=== PATIENT | female | born 1980 | race African-American/Black ===

== ENCOUNTER 2018-07-14 17:13 | Emergency (ER) | payer BC, OTHER ==
[2018-07-14] MEDS: DIPHENHYDRAMINE 50 MG INJ IV (18:11)
[2018-07-14] MEDS: SOD CHLORIDE 0.9% 1,000 ML IV (18:11)
[2018-07-14] MEDS: ONDANSETRON 4 MG INJ IV (18:11)
[2018-07-14 18:21] LABS: ADD MAN DIFF? NO
[2018-07-14 18:33] LABS: WHITE BLOOD COUNT 7.5 10^3/ul (4.8-10.8)
[2018-07-14 18:33] LABS: BASOPHILS % 0.4 % (0.0-2.0); EOSINOPHILS # 0.1 10^3/ul (0.0-0.5); EOSINOPHILS % 0.9 % (0.0-7.0); HEMATOCRIT 37.1 % (37.0-47.0); HEMOGLOBIN 12.7 g/dl (12.0-16.0); LYMPHOCYTES # 3.6 10^3/ul (0.8-2.9); LYMPHOCYTES % 48.3 % (15.0-51.0); MEAN CORPUSCULAR HEMOGLOBIN 32.6 pg (29.0-33.0); MEAN CORPUSCULAR HGB CONC 34.2 g/dl (32.0-37.0); MEAN CORPUSCULAR VOLUME 95.1 fl (82.0-101.0); MEAN PLATELET VOLUME 9.6 fl (7.4-10.4); MONOCYTE # 0.4 10^3/ul (0.3-0.9); MONOCYTES % 5.1 % (0.0-11.0); NEUTROPHIL # 3.4 10^3/ul (1.6-7.5); NEUTROPHILS % 45.2 % (39.0-77.0); PLATELET COUNT 202 10^3/UL (140-415); RED CELL DISTRIBUTION WIDTH 14.5 % (11.5-14.5)
[2018-07-14 18:39] LABS: ADD UMIC NO; UR ASCORBIC ACID 20 mg/dL (NEGATIVE); UR BILIRUBIN (Dip) NEGATIVE (NEGATIVE); UR BLOOD (Dip) NEGATIVE (NEGATIVE); UR CLARITY CLEAR (CLEAR); UR COLOR YELLOW (YELLOW); UR GLUCOSE (Dip) NEGATIVE (NEGATIVE); UR KETONES (Dip) TRACE mg/dL (NEGATIVE); UR LEUKOCYTE ESTERASE (Dip) NEGATIVE Leu/ul (NEGATIVE); UR NITRITE (Dip) NEGATIVE (NEGATIVE); UR SPECIFIC GRAVITY (Dip) 1.026 (1.003-1.030); UR TOTAL PROTEIN (Dip) NEGATIVE (NEGATIVE); UR UROBILINOGEN (Dip) 2+ mg/dL (NEGATIVE)
[2018-07-14 18:59] LABS: ALANINE AMINOTRANSFERASE 22 IU/L (13-69); ALBUMIN 3.3 g/dl (3.3-4.9); ALBUMIN/GLOBULIN RATIO 1.22; ALKALINE PHOSPHATASE 46 IU/L (42-121); ANION GAP 9 (8-16); ASPARTATE AMINO TRANSFERASE 28 IU/L (15-46); BILIRUBIN,INDIRECT 0.3 mg/dl (0-1.1); BILIRUBIN,TOTAL 0.3 mg/dl (0.2-1.3); BLOOD UREA NITROGEN 13 mg/dl (7-20); CALCIUM 8.9 mg/dl (8.4-10.2); CARBON DIOXIDE 28 mmol/L (21-31); CHLORIDE 104 mmol/L (97-110); CREATININE 0.58 mg/dl (0.44-1.00); GLUCOSE 112 mg/dl (70-220); LIPASE 216 U/L (23-300); SODIUM 138 mmol/L (135-144)
[2018-07-14 19:06] LABS: TROPONIN-I < 0.012 ng/ml (0.000-0.120)
[2018-07-14] MEDS: POTASSIUM CHLORIDE (SR) 20 MEQ TAB PO (19:47)
== END 2018-07-14 21:12 | disposition home or self-care (01) ==
LOC: E/R 21:12
DX: S50.861A Insect bite (nonvenomous) of right forearm, initial encounter (principal); E87.6 Hypokalemia; R11.2 Nausea with vomiting, unspecified; W57.XXXA Bitten or stung by nonvenomous insect and other nonvenomous arthropods, initial encounter; Y92.59 Other trade areas as the place of occurrence of the external cause
CPT/HCPCS: 36415; 71045; 80053; 81003; 83690; 84484; 85025; 96374; 96375; 99284-25

== ENCOUNTER 2018-08-12 22:30 | Emergency (ER) | payer BC ==
[2018-08-13] MEDS: IBUPROFEN 800 MG TAB PO (00:04)
[2018-08-13] MEDS: HYDROCHLOROTHIAZIDE 25 MG TAB PO (00:32)
== END 2018-08-13 00:48 | disposition home or self-care (01) ==
LOC: FTE 22:30
DX: Z76.0 Encounter for issue of repeat prescription (principal); I10 Essential (primary) hypertension
CPT/HCPCS: 99283; Z7610

== ENCOUNTER 2018-08-13 19:29 | Emergency (ER) | payer BC ==
[2018-08-13 20:11] LABS: ADD MAN DIFF? NO
[2018-08-13 20:13] LABS: BASOPHILS % 0.3 % (0.0-2.0); EOSINOPHILS # 0.1 10^3/ul (0.0-0.5); EOSINOPHILS % 1.9 % (0.0-7.0); HEMATOCRIT 36.7 % (37.0-47.0); HEMOGLOBIN 12.5 g/dl (12.0-16.0); LYMPHOCYTES # 3.4 10^3/ul (0.8-2.9); LYMPHOCYTES % 58.5 % (15.0-51.0); MEAN CORPUSCULAR HEMOGLOBIN 33.3 pg (29.0-33.0); MEAN CORPUSCULAR HGB CONC 34.1 g/dl (32.0-37.0); MEAN CORPUSCULAR VOLUME 97.9 fl (82.0-101.0); MEAN PLATELET VOLUME 9.2 fl (7.4-10.4); MONOCYTE # 0.3 10^3/ul (0.3-0.9); MONOCYTES % 4.5 % (0.0-11.0); NEUTROPHILS % 34.6 % (39.0-77.0); PLATELET COUNT 246 10^3/UL (140-415); RED BLOOD COUNT 3.75 10^6/ul (4.20-5.40)
[2018-08-13 20:13] LABS: WHITE BLOOD COUNT 5.7 10^3/ul (4.8-10.8)
[2018-08-13 20:33] LABS: ANION GAP 9 (8-16); BLOOD UREA NITROGEN 8 mg/dl (7-20); CARBON DIOXIDE 30 mmol/L (21-31); CHLORIDE 106 mmol/L (97-110); CREATININE 0.64 mg/dl (0.44-1.00); GLUCOSE 75 mg/dl (70-220); POTASSIUM 3.5 mmol/L (3.5-5.1); PROTIME 11.1 Sec (11.9-14.9); PT RATIO 0.9; SODIUM 141 mmol/L (135-144)
[2018-08-13 20:34] LABS: PARTIAL THROMBOPLASTIN TIME 25.4 Sec (23.0-35.0)
[2018-08-13 20:45] LABS: B-TYPE NATRIURETIC PEPTIDE 164 PG/ML (0-125); TROPONIN-I < 0.012 ng/ml (0.000-0.120)
[2018-08-13] MEDS: IBUPROFEN 600 MG TAB PO (21:28)
== END 2018-08-13 22:06 | disposition home or self-care (01) ==
LOC: E/R 19:29
DX: R60.9 Edema, unspecified (principal); I10 Essential (primary) hypertension; R06.02 Shortness of breath
CPT/HCPCS: 36415; 71045; 80048; 81025; 83880; 84484; 85025; 85610; 85730; 93005; 93970; 99285-25

== ENCOUNTER 2018-08-24 08:47 | Emergency (ER) | payer BC ==
[2018-08-24] MEDS: SOD CHLORIDE 0.9% 1,000 ML IV (09:41)
[2018-08-24] MEDS: FAMOTIDINE 20 MG INJ IV (09:42)
[2018-08-24] MEDS: ONDANSETRON 4 MG INJ IV (09:42)
[2018-08-24 09:43] LABS: ADD MAN DIFF? NO
[2018-08-24 09:47] LABS: BASOPHILS % 0.5 % (0.0-2.0); EOSINOPHILS # 0.1 10^3/ul (0.0-0.5); EOSINOPHILS % 1.4 % (0.0-7.0); HEMATOCRIT 41.1 % (37.0-47.0); HEMOGLOBIN 14.2 g/dl (12.0-16.0); LYMPHOCYTES # 3.6 10^3/ul (0.8-2.9); LYMPHOCYTES % 44.8 % (15.0-51.0); MEAN CORPUSCULAR HEMOGLOBIN 32.5 pg (29.0-33.0); MEAN CORPUSCULAR HGB CONC 34.5 g/dl (32.0-37.0); MEAN CORPUSCULAR VOLUME 94.1 fl (82.0-101.0); MEAN PLATELET VOLUME 9.3 fl (7.4-10.4); MONOCYTE # 0.5 10^3/ul (0.3-0.9); MONOCYTES % 6.1 % (0.0-11.0); NEUTROPHIL # 3.7 10^3/ul (1.6-7.5); NEUTROPHILS % 47.1 % (39.0-77.0); PLATELET COUNT 293 10^3/UL (140-415); RED BLOOD COUNT 4.37 10^6/ul (4.20-5.40); RED CELL DISTRIBUTION WIDTH 14.5 % (11.5-14.5)
[2018-08-24 09:47] LABS: WHITE BLOOD COUNT 7.9 10^3/ul (4.8-10.8)
[2018-08-24 10:06] LABS: ALANINE AMINOTRANSFERASE 26 IU/L (13-69); ALBUMIN 4.1 g/dl (3.3-4.9); ALBUMIN/GLOBULIN RATIO 1.51; ALKALINE PHOSPHATASE 45 IU/L (42-121); ANION GAP 11 (8-16); ASPARTATE AMINO TRANSFERASE 38 IU/L (15-46); BLOOD UREA NITROGEN 9 mg/dl (7-20); CALCIUM 9.6 mg/dl (8.4-10.2); CARBON DIOXIDE 28 mmol/L (21-31); CHLORIDE 103 mmol/L (97-110); CREATININE 0.65 mg/dl (0.44-1.00); GLUCOSE 93 mg/dl (70-220); LIPASE 123 U/L (23-300); POTASSIUM 3.7 mmol/L (3.5-5.1); SODIUM 138 mmol/L (135-144); TOTAL PROTEIN 6.8 g/dl (6.1-8.1)
[2018-08-24] MEDS: KETOROLAC 30 MG INJ IV (10:09)
[2018-08-24 11:45] LABS: URINE BLOOD (Dip) POC Trace-intact (NEGATIVE); URINE GLUCOSE (Dip) POC Negative (NEGATIVE); URINE KETONES (Dip) POC 2+ (NEGATIVE); URINE LEUKOCYTE EST (Dip) POC Negative (NEGATIVE); URINE NITRITE (Dip) POC Negative (NEGATIVE); URINE TOTAL PROTEIN POC 2+ (NEGATIVE)
[2018-08-24] MEDS: LIDOCAINE/MYLANTA 40 ML BTL PO (11:50)
[2018-08-24] MEDS: BELLADONNA/PHENOBARBITAL TAB PO (11:50)
== END 2018-08-24 12:21 | disposition home or self-care (01) ==
LOC: FTE 08:47
DX: R11.2 Nausea with vomiting, unspecified (principal); I10 Essential (primary) hypertension
CPT/HCPCS: 36415; 74176; 80053; 81003; 81025; 83690; 85025; 87045; 96361; 96374; 96375; 99285-25

== ENCOUNTER 2018-08-29 12:42 | Emergency (ER) | payer BC ==
[2018-08-29] MEDS: ONDANSETRON 4 MG INJ IV (13:34)
[2018-08-29] MEDS: KETOROLAC 30 MG INJ IV (13:34)
[2018-08-29] MEDS: HALOPERIDOL 5 MG INJ IV (13:35)
[2018-08-29] MEDS: SOD CHLORIDE 0.9% 1,000 ML IV (13:35)
[2018-08-29 13:36] LABS: ADD MAN DIFF? NO; ADD UMIC YES; UR ASCORBIC ACID 20 mg/dL (NEGATIVE); UR BILIRUBIN (Dip) 2+ mg/dL (NEGATIVE); UR BLOOD (Dip) 3+ mg/dL (NEGATIVE); UR CLARITY SLIGHTLY CLOUDY (CLEAR); UR COLOR AMBER (YELLOW); UR GLUCOSE (Dip) NEGATIVE (NEGATIVE); UR KETONES (Dip) 1+ mg/dL (NEGATIVE); UR LEUKOCYTE ESTERASE (Dip) TRACE Leu/ul (NEGATIVE); UR MUCUS MANY /HPF (NONE SEEN); UR NITRITE (Dip) NEGATIVE (NEGATIVE); UR RBC > 182 /HPF (0-5); UR SPECIFIC GRAVITY (Dip) 1.043 (1.003-1.030); UR SQUAMOUS EPITHELIAL CELL FEW /HPF (FEW); UR TOTAL PROTEIN (Dip) 2+ mg/dl (NEGATIVE); UR UROBILINOGEN (Dip) 2+ mg/dL (NEGATIVE); UR WBC 3 /HPF (0-5)
[2018-08-29 13:37] LABS: BASOPHILS % 0.2 % (0.0-2.0); EOSINOPHILS # 0.1 10^3/ul (0.0-0.5); EOSINOPHILS % 0.6 % (0.0-7.0); HEMATOCRIT 46.5 % (37.0-47.0); HEMOGLOBIN 16.3 g/dl (12.0-16.0); LYMPHOCYTES # 2.2 10^3/ul (0.8-2.9); LYMPHOCYTES % 24.4 % (15.0-51.0); MEAN CORPUSCULAR HGB CONC 35.1 g/dl (32.0-37.0); MEAN CORPUSCULAR VOLUME 94.1 fl (82.0-101.0); MEAN PLATELET VOLUME 9.4 fl (7.4-10.4); MONOCYTE # 0.4 10^3/ul (0.3-0.9); MONOCYTES % 4.6 % (0.0-11.0); NEUTROPHIL # 6.3 10^3/ul (1.6-7.5); NEUTROPHILS % 69.9 % (39.0-77.0); PLATELET COUNT 253 10^3/UL (140-415); RED BLOOD COUNT 4.94 10^6/ul (4.20-5.40); RED CELL DISTRIBUTION WIDTH 14.6 % (11.5-14.5)
[2018-08-29 13:37] LABS: WHITE BLOOD COUNT 9.1 10^3/ul (4.8-10.8)
[2018-08-29] MEDS: CAPSAICIN 0.025% 60 GM CR TOP (13:44)
[2018-08-29 13:56] LABS: ALANINE AMINOTRANSFERASE 29 IU/L (13-69); ALBUMIN 3.3 g/dl (3.3-4.9); ALBUMIN/GLOBULIN RATIO 1.22; ALKALINE PHOSPHATASE 36 IU/L (42-121); ANION GAP 14 (8-16); ASPARTATE AMINO TRANSFERASE 40 IU/L (15-46); BILIRUBIN,INDIRECT 0.9 mg/dl (0-1.1); BILIRUBIN,TOTAL 0.9 mg/dl (0.2-1.3); BLOOD UREA NITROGEN 9 mg/dl (7-20); CALCIUM 9.1 mg/dl (8.4-10.2); CARBON DIOXIDE 25 mmol/L (21-31); CHLORIDE 102 mmol/L (97-110); GLUCOSE 138 mg/dl (70-220); LIPASE 196 U/L (23-300); SODIUM 138 mmol/L (135-144)
[2018-08-29 14:16] LABS: POTASSIUM 2.8 mmol/L (3.5-5.1)
[2018-08-29] MEDS: POTASSIUM CHLORIDE (SR) 20 MEQ TAB PO (14:52)
== END 2018-08-29 15:12 | disposition home or self-care (01) ==
LOC: E/R 12:42
DX: F12.188 Cannabis abuse with other cannabis-induced disorder (principal); I10 Essential (primary) hypertension
CPT/HCPCS: 36415; 80053; 81001; 81025; 83690; 85025; 96374; 96375; 99284-25